=== PATIENT | male | born 1990 | race Caucasian/White ===

== ENCOUNTER 2017-08-19 16:58 | Emergency (ER) | payer BC ==
[~2017-08-19] VITALS: Ht 180.3 cm; Wt 68.0 kg
[2017-08-19 17:05] VITALS: BP 114/73; PULSE 87; RESP 16; TEMP 98.2; O2SAT 99
[2017-08-19] MEDS ORDERED: KETOROLAC TROMETHAMINE 30 MG/ML (IVP) VIAL IV PUSH ONE (17:30)
--- NOTE | 2017-08-19 17:33 | PD ---
HPI Chief Complaint: Respiratory Symptoms Time Seen by Provider: 17:21 Travel History International Travel<30 days: No Contact w/Intl Traveler<30days: No Traveled to known affect area: No History of Present Illness HPI 27-year-old male complains of left-sided chest pain. Patient states that the pain started last night. Patient stated pain sharp pain localized to the left chest. Patient denies any pain radiation. Patient denies palpitation. Patient denies nausea diaphoresis. Patient states that he has intermittent chronic cough from smoking. Patient states that the cough is not new. Patient denies any fever chills. Patient denies history hypertension, diabetes, lymphedema. Patient is a smoker. Patient denies family history of heart disease. Patient denies any injury to the left chest. PFSH Past Medical History Medical History: Denies Significant Hx Influenza Vaccination: No Past Surgical History Surgical History: No Previous Surgery Social History Alcohol Use: No Tobacco Use: Yes (1 PPD) Substance Use: No Allergies-Medications (Allergen,Severity, Reaction): Coded Allergies: No Known Allergies (Unverified , 08/19/17) Review of Systems General / Constitutional: No: Fever Eyes: No: Visual changes HENT: No: Headaches Cardiovascular: Positive: Chest Pain or Discomfort Respiratory: No: Shortness of Breath Gastrointestinal: No: Abdominal Pain Genitourinary: No: Dysuria Musculoskeletal: No: Pain Skin: No Rash Neurologic: No: Weakness Psychiatric: No: Depression Endocrine: No: Polydipsia Hematologic/Lymphatic: No: Easy Bruising Physical Exam Narrative GENERAL: Well-nourished, well-developed patient. SKIN: Focused skin assessment warm/dry. HEAD: Normocephalic. EYES: No scleral icterus. No injection or drainage. NECK: Supple, trachea midline. No JVD or lymphadenopathy. CARDIOVASCULAR: Regular rate and rhythm without murmurs, gallops, or rubs. RESPIRATORY: Breath sounds equal bilaterally. No accessory muscle use. GASTROINTESTINAL: Abdomen soft, non-tender, nondistended. MUSCULOSKELETAL: No cyanosis, or edema. BACK: Nontender without obvious deformity. No CVA tenderness. Neurologic exam normal. Data Data Last Documented VS Vital Signs Date Time Temp Pulse Resp B/P (MAP) Pulse Ox O2 Delivery O2 Flow Rate FiO2 08/19/17 17:05 87 16 99 08/19/17 17:05 98.2 114/73 (87) Orders Orders Electrocardiogram (08/19/17 17:02) Complete Blood Count With Diff (08/19/17 17:27) Basic Metabolic Panel (Bmp) (08/19/17 17:27) Creatine Kinase (Cpk) (08/19/17 17:27) Troponin I (08/19/17 17:27) Chest, Single Ap (08/19/17 17:27) Iv Access Insert/Monitor (08/19/17 17:27) Ecg Monitoring (08/19/17 17:27) Oximetry (08/19/17 17:27) Ketorolac Inj (Toradol Inj) (08/19/17 17:30) Labs Laboratory Tests Test 08/19/17 17:40 White Blood Count 11.1 TH/MM3 Red Blood Count 4.45 MIL/MM3 Hemoglobin 14.0 GM/DL Hematocrit 40.4 % Mean Corpuscular Volume 90.7 FL Mean Corpuscular Hemoglobin 31.5 PG Mean Corpuscular Hemoglobin Concent 34.7 % Red Cell Distribution Width 12.5 % Platelet Count 202 TH/MM3 Mean Platelet Volume 9.1 FL Neutrophils (%) (Auto) 69.4 % Lymphocytes (%) (Auto) 19.9 % Monocytes (%) (Auto) 8.8 % Eosinophils (%) (Auto) 1.3 % Basophils (%) (Auto) 0.6 % Neutrophils # (Auto) 7.7 TH/MM3 Lymphocytes # (Auto) 2.2 TH/MM3 Monocytes # (Auto) 1.0 TH/MM3 Eosinophils # (Auto) 0.1 TH/MM3 Basophils # (Auto) 0.1 TH/MM3 CBC Comment DIFF FINAL Differential Comment Blood Urea Nitrogen 12 MG/DL Creatinine 0.84 MG/DL Random Glucose 92 MG/DL Calcium Level 9.0 MG/DL Sodium Level 140 MEQ/L Potassium Level 3.8 MEQ/L Chloride Level 105 MEQ/L Carbon Dioxide Level 28.9 MEQ/L Anion Gap 6 MEQ/L Estimat Glomerular Filtration Rate 108 ML/MIN Total Creatine Kinase 188 U/L [facility] Medical Decision Making Medical Screen Exam Complete: Yes Emergency Medical Condition: Yes Interpretation(s) Last Impressions Chest X-Ray 08/19/17 1217 Signed Impressions: CONCLUSION: Negative examination. Differential Diagnosis Differential diagnosis including musculoskeletal, angina, IN, PE, pneumothorax. Narrative Course 27-year-old male complains of left-sided chest pain. Pain is sharp pain worse with deep inspiration. Diagnosis Primary Impression: Atypical chest pain Patient Instructions: General Instructions Additional Instructions: Take medications as needed for pain. Follow-up with personal physician. Return if increasing chest pain shortness of breath. Med/Other Pt SpecificInfo: Prescription(s) given Scripts Methocarbamol (Robaxin) 750 Mg Tab 750 MG PO QID for Muscle Spasm, #40 TAB 0 Refills Prov: Benjie Zendejas MD 08/19/17 Ibuprofen (Ibuprofen) 600 Mg Tab 600 MG PO TID for Pain, #30 TAB 0 Refills Prov: Benjie Zendejas MD 08/19/17 Disposition: 01 DISCHARGE HOME Condition: Stable Benjie Zendejas MD Aug 19, 2017 17:33
--- NOTE | 2017-08-19 17:46 | RADRPT ---
EXAM DATE: 08/19/2017 5:39 PM EDT AGE/SEX: 27 years / Male INDICATIONS: Chest pain. CLINICAL DATA: This is the patient's initial encounter. Patient reports that signs and symptoms have been present for 1 day and indicates a pain score of 5/10. MEDICAL/SURGICAL HISTORY: None. . COMPARISON: . FINDINGS: A single AP view of the chest demonstrates the lungs to be symmetrically aerated without evidence of mass, infiltrate or effusion. The cardiomediastinal contours are unremarkable. Osseous structures a re intact. CONCLUSION: Negative examination. Electronically signed by: Santiago Strickland MD 08/19/2017 5:45 PM EDT
[2017-08-19 17:51] LABS: AUTOMATED NEUTROPHIL # 7.7 TH/MM3 (1.8-7.7); BASOPHIL # 0.1 TH/MM3 (0-0.2); BASOPHIL % 0.6 % (0.0-2.0); EOSINOPHIL # 0.1 TH/MM3 (0-0.4); EOSINOPHIL % 1.3 % (0.0-4.0); HEMATOCRIT 40.4 % (39.0-51.0); LYMPH % 19.9 % (9.0-44.0); LYMPHOCYTE # 2.2 TH/MM3 (1.0-4.8); MEAN CELL VOLUME 90.7 FL (80.0-100.0); MEAN CORPUSCULAR HEMOGLOBIN 31.5 PG (27.0-34.0); MEAN CORPUSCULAR HGB CONC 34.7 % (32.0-36.0); MEAN PLATELET VOLUME 9.1 FL (7.0-11.0); MONO % 8.8 % (0.0-8.0); NEUT % 69.4 % (16.0-70.0); PLATELET COUNT 202 TH/MM3 (150-450); RED BLOOD COUNT 4.45 MIL/MM3 (4.50-5.90); RED CELL DISTRIBUTION WIDTH 12.5 % (11.6-17.2); WHITE BLOOD COUNT 11.1 TH/MM3 (4.0-11.0)
[2017-08-19 17:59] LABS: CHLORIDE 105 MEQ/L (98-107); SODIUM (NA) 140 MEQ/L (136-145)
[2017-08-19 18:02] LABS: BICARBONATE 28.9 MEQ/L (21.0-32.0); BLOOD UREA NITROGEN 12 MG/DL (7-18); GLUCOSE,RANDOM 92 MG/DL (74-106)
[2017-08-19 18:05] LABS: CREATININE 0.84 MG/DL (0.60-1.30); GLOMERULAR FILTRATION RATE 108 ML/MIN (>89)
[2017-08-19 18:10] LABS: TROPONIN I LESS THAN 0.02 NG/ML (0.02-0.05)
[2017-08-19] MEDS ORDERED: IBUP-232 PO (18:13)
[2017-08-19] MEDS ORDERED: ROBA750T PO (18:13)
--- NOTE | 2017-08-20 15:12 | EKG ---
Date Performed: 08/19/2017 Time Performed: 17:02:16 PTAGE: 27 years EKG: Sinus rhythm ST ELEVATION, PROBABLY EARLY REPOLARIZATION BORDERLINE ECG NO PREVIOUS TRACING DOCTOR: Ольга Leiva Interpretating Date/Time 08/20/2017 15:11:48
== END 2017-08-19 18:30 | disposition home or self-care (01) ==
LOC: PHED 16:58
DX: R07.89 Other chest pain (principal); R05 Cough; R94.31 Abnormal electrocardiogram [ECG] [EKG]; F17.200 Nicotine dependence, unspecified, uncomplicated
CPT/HCPCS: 71045; 80048; 82550; 84484; 85025; 93005; 96374; 99285; J1885